=== PATIENT | female | born 2000 ===

== ENCOUNTER 2021-05-24 10:23 | Outpatient (CLI) | payer OTHER ==
[2021-05-24 19:55] LABS: SARS-CoV-2 PCR by NAA Not Detected (NotDetected)
== END 2021-05-24 10:24 | disposition home or self-care (01) ==
LOC: CSHLAB 10:23
PROVIDERS: ATTEND Obstetrics & Gynecology
DX: Z20.822 Contact with and (suspected) exposure to COVID-19 (principal)
CPT/HCPCS: U0003; U0005

== ENCOUNTER 2021-05-29 18:00 | Inpatient (IN) | payer OTHER ==
[~2021-05-29 18:00] MED LIST: Bupivacaine 0.25% HCL 30 ML VIAL ONE
[2021-05-29] MEDS ORDERED: HYDROcodone/Acetaminophen 5/325 mg Tablet PO PRN ×2 (18:51)
[2021-05-29] MEDS ORDERED: hydrALAZINE 20 MG/ML VIAL SLOW IVP PRN ×2 (18:51→20:25)
[2021-05-29] MEDS ORDERED: Butorphanol Tartrate 1 MG/ML VIAL SLOW IVP PRN (18:51)
[2021-05-29] MEDS ORDERED: Lidocaine 1% (PF) 30 ML VIAL SC PRN (18:51)
[2021-05-29] MEDS ORDERED: Ondansetron PF 4 MG/2 ML Vial IVP PRN (18:51)
[2021-05-29] MEDS ORDERED: Ibuprofen 800 MG TAB PO PRN (18:51)
[2021-05-29] MEDS ORDERED: NS w/ Oxytocin 30 units 500 ML IV SCH ×2 (18:51)
[2021-05-29] MEDS ORDERED: Promethazine HCl 25 MG/ML VIAL IM PRN (18:51)
[2021-05-29] MEDS ORDERED: hydrALAZINE 20 MG/ML VIAL ONE (19:36)
[2021-05-29 19:57] LABS: Hemoglobin 12.6 g/dL (12.0-15.5); Mean Corpuscular HGB CONC 34.7 g/dL (32.0-36.0); Mean Corpuscular Hemoglobin 30.8 pg (27.0-33.0); Mean Corpuscular Volume 88.8 fl (81.6-98.3); Mean Platelet Volume 12.8 fl (7.4-10.4); Platelet Count 173 10x3/uL (150-450); RBC Distribution Width 12.9 % (11.5-14.5); Red Blood Cell (RBC) Count 4.09 10x6/uL (3.90-5.03); White Blood Cell (WBC) Count 10.8 10x3/uL (3.5-10.5)
[2021-05-29 20:05] VITALS: BMI 34.3
[2021-05-29] MEDS ORDERED: Labetalol HCl 100 MG/20 ML VIAL SLOW IVP PRN (20:25)
[2021-05-29 20:28] LABS: Hep B Surf Ag Non-Reactive S/CO (NonReactive)
[2021-05-29 20:29] LABS: Syphilis Antibody Nonreactive (Nonreactive); Syphilis Antibody Index 0.01 S/CO (<1.00 Non-Reactive)
[2021-05-29] MEDS ORDERED: Penicillin G Potassium 5 MILL.UNITS in Sodium Chloride 0.9% 100 ML IVPB SCH (20:30)
[2021-05-29] MEDS ORDERED: Misoprostol 100 MCG TAB VAG SCH ×2 (20:30→21:00)
[2021-05-29 20:35] LABS: HBSAg Index 0.19 S/CO (0-0.99)
[2021-05-29] MEDS ORDERED: Calcium Gluc 4.6 MEQ/10 ML (100 MG/ML) SLOW IVP PRN (20:50)
[2021-05-29] MEDS ORDERED: Magnesium Sulfate 20 gm/500 ml 20 GM/500 ML BAG ONE (20:55)
[2021-05-29] MEDS ORDERED: Magnesium Sulfate 20 GM/WATER 500 ML BAG IVPB SCH (21:00)
[2021-05-29] MEDS ORDERED: Labetalol HCl 100 MG/20 ML VIAL SLOW IVP SCH (22:45)
[2021-05-30] MEDS ORDERED: NIFEdipine 10 MG CAP PO SCH (00:15)
[2021-05-30] MEDS ORDERED: Labetalol HCl 100 MG/20 ML VIAL SLOW IVP SCH (00:15)
[2021-05-30] MEDS: NIFEdipine 10 MG CAP PO SCH ×4 (01:10→21:19)
[2021-05-30] MEDS: Penicillin G 2.5 MILL.units 2.5 MILL.UNITS in Premix Bag 1 BAG IVPB SCH ×3 (01:58→10:07)
[2021-05-30] MEDS: Magnesium Sulfate 20 gm/500 ml 20 GM/500 ML BAG IVPB SCH (04:03)
[2021-05-30] MEDS: Misoprostol 100 MCG TAB VAG SCH (04:57)
[2021-05-30] MEDS ORDERED: Fentanyl 2 mcg/Bup 0.1% Cadd 100 ML ONE (09:13)
[2021-05-30] MEDS: NS w/ Oxytocin 30 units 500 ML IVPB SCH ×2 (10:07→15:06)
[2021-05-30] MEDS ORDERED: Carboprost 250 MCG/ML AMP ONE (13:56)
[2021-05-30] MEDS ORDERED: Misoprostol 200 MCG TAB ONE (13:57)
[2021-05-30] MEDS ORDERED: Magnesium Sulfate 20 gm/500 ml 20 GM/500 ML BAG ONE (14:00)
[2021-05-30] MEDS ORDERED: Hydrocerin (Eucerin) Cream 120 gm Jar TOP PRN (14:04)
[2021-05-30] MEDS ORDERED: ePHEDrine Sulfate 50 MG/10 ML VIAL SLOW IVP PRN (14:04)
[2021-05-30] MEDS ORDERED: Naloxone HCl 0.4 mg/ml Vial IVP PRN ×2 (14:04)
[2021-05-30] MEDS ORDERED: Ondansetron PF 4 MG/2 ML Vial IVP PRN (14:04)
[2021-05-30] MEDS ORDERED: Lactated Ringer's 500 ML IV PRN (14:04)
[2021-05-30] MEDS ORDERED: diphenhydrAMINE 50 MG/ML VIAL IVP PRN (14:04)
[2021-05-30] MEDS ORDERED: Promethazine HCl 25 MG/ML VIAL IM PRN (14:04)
[2021-05-30] MEDS ORDERED: Acetaminophen 325 MG TAB PO PRN (14:04)
[2021-05-30] MEDS ORDERED: Communication Order-Pharmacy FS PRN (14:15)
[2021-05-30] MEDS ORDERED: Fentanyl 2 mcg/Bupivacaine 0.1% Cassette 100 ML EPIDURAL SCH (14:15)
[2021-05-30 14:48] LABS: Actual Bicarbonate (HCO3v) 15 mEq/L (22-28); Base Excess -9.6 mEq/L (-2.0 to +3.0); Calcium, Ionized (venous) 1.09 mmol/L (1.16-1.32); Chloride (VBG) 100 mmol/L (98-106); Critical Notified Whom: LD RN; Hemoglobin (Hb) 15.8 g/dL (11.7-15.5); Potassium (VBG) 4.53 mmol/L (3.70-5.30); Puncture Site Other Site; RapidComm Collect By LAB TECH; Sodium 128.4 mmol/L (133-146); pH (venous) 7.31 (7.32-7.43)
[2021-05-30] MEDS ORDERED: NIFEdipine XL 30 MG TAB PO SCH (17:00)
[2021-05-30] MEDS ORDERED: hydrALAZINE 20 MG/ML VIAL ONE (20:45)
[2021-05-30] MEDS: Lactated Ringer's 1,000 ML IV SCH (22:51)
[2021-05-31] MEDS: NIFEdipine 10 MG CAP PO SCH (03:11)
[2021-05-31 05:53] LABS: ALT (SGPT) 38 U/L (8-55); AST (SGOT) 40 U/L (5-34); Albumin 2.4 g/dL (3.5-5.0); Alkaline Phosphatase 183 U/L (40-110); Anion Gap 12 mmol/L (10-20); BUN (Urea Nitrogen) 13 mg/dL (7.0-18.7); Bilirubin, Total 0.3 mg/dL (0.2-1.2); Calc. Creatinine Clearance 153 mL/min (70-130); Calcium 6.8 mg/dL (7.8-10.44); Carbon Dioxide 21 mmol/L (22-29); Chloride 102 mmol/L (98-107); Globulin 2.4 g/dL (2.4-3.5); Glucose 93 mg/dL (70-105); Potassium 4.7 mmol/L (3.5-5.1); Protein, Total 4.8 g/dL (6.0-8.3); Sodium 130 mmol/L (136-145)
[2021-05-31] MEDS: NIFEdipine XL 60 MG TAB PO SCH (09:41)
[2021-05-31] MEDS: Magnesium Sulfate 20 gm/500 ml 20 GM/500 ML BAG IVPB SCH (10:10)
[2021-05-31] MEDS: Lactated Ringer's 1,000 ML IV SCH ×2 (12:14→17:07)
[2021-05-31 15:36] LABS: Critical Notified Whom: LD RN; RapidComm Collect By LD RN
[2021-05-31 15:37] LABS: Critical Notified Whom: LD RN; RapidComm Collect By LD RN; pH (Cord, venous) 7.181 (7.250-7.350)
[2021-05-31] MEDS ORDERED: Ondansetron PF 4 MG/2 ML Vial IVP PRN (15:59)
[2021-05-31] MEDS ORDERED: Magnesium Sulfate 20 gm/500 ml 20 GM/500 ML BAG IVPB SCH (15:59)
[2021-05-31] MEDS ORDERED: Calcium Gluconate 4.6 MEQ in Sodium Chloride 0.9% 100 ML IVPB PRN (15:59)
[2021-05-31] MEDS ORDERED: Benzocaine-Menthol 82.5 ML CAN TOP PRN (15:59)
[2021-05-31] MEDS ORDERED: Milk Of Magnesia 30 ML UDCUP PO PRN ×2 (15:59)
[2021-05-31] MEDS ORDERED: Prenatal Vitamin 1 TAB PO SCH ×2 (15:59→17:00)
[2021-05-31] MEDS ORDERED: HYDROcodone/Acetaminophen 5/325 mg Tablet PO PRN ×4 (15:59)
[2021-05-31] MEDS ORDERED: Docusate Calcium (SURFAK) 240 MG CAP PO SCH ×2 (15:59→17:00)
[2021-05-31] MEDS ORDERED: Bisacodyl 10 MG SUPP PR PRN ×2 (15:59)
[2021-05-31] MEDS ORDERED: Lanolin Ointment 7 GM TUBE TOP PRN (15:59)
[2021-05-31] MEDS ORDERED: Ibuprofen 800 MG TAB PO SCH (15:59)
[2021-05-31] MEDS ORDERED: diphenhydrAMINE 25 MG CAP PO PRN (15:59)
[2021-05-31] MEDS ORDERED: hydrALAZINE 20 MG/ML VIAL SLOW IVP PRN ×2 (15:59)
[2021-05-31 16:47] LABS: Magnesium 5.5 mg/dL (1.6-2.6)
[2021-05-31] MEDS ORDERED: Ferrous Sulfate 325 MG TAB PO SCH (17:00)
[2021-05-31] MEDS: Ferrous Sulfate 325 MG TAB PO SCH (17:03)
[2021-05-31] MEDS: Misoprostol 100 MCG TAB VAG SCH ×5 (17:03→17:07)
[2021-05-31] MEDS: Penicillin G 2.5 MILL.units 2.5 MILL.UNITS in Premix Bag 1 BAG IVPB SCH ×3 (17:08→17:12)
[2021-05-31] MEDS: Ibuprofen 800 MG TAB PO SCH (17:35)
[2021-05-31] MEDS: Docusate Calcium (SURFAK) 240 MG CAP PO SCH (21:56)
[2021-06-01] MEDS: Ibuprofen 800 MG TAB PO SCH ×2 (01:22→08:46)
[2021-06-01] MEDS: NIFEdipine XL 60 MG TAB PO SCH (08:45)
[2021-06-01] MEDS: Docusate Calcium (SURFAK) 240 MG CAP PO SCH (08:45)
[2021-06-01] MEDS: Ferrous Sulfate 325 MG TAB PO SCH (08:45)
[2021-06-01] MEDS ORDERED: Prenatal Vitamin 1 TAB PO SCH (09:00)
[2021-06-01 11:35] VITALS: BP 138/80; TEMP 99
[2021-06-01] MEDS ORDERED: Boostrix 0.5 ML (Tdap) VIAL IM ONE (15:59)
== END 2021-06-01 16:25 | disposition home or self-care (01) | DRG 807 ==
LOC: CSHLD 18:27 → CSHPP 05-31 14:58
PROVIDERS: ADMIT Obstetrics & Gynecology; ATTEND Obstetrics & Gynecology
PROC: 10E0XZZ Delivery of Products of Conception, External Approach (ICD-10-PCS; principal; 2021-05-30)
PROC: 10907ZC Drainage of Amniotic Fluid, Therapeutic from Products of Conception, Via Natural or Artificial Opening (ICD-10-PCS; 2021-05-30)
PROC: 3E0P7VZ Introduction of Hormone into Female Reproductive, Via Natural or Artificial Opening (ICD-10-PCS; 2021-05-30)
PROC: 3E033VJ Introduction of Other Hormone into Peripheral Vein, Percutaneous Approach (ICD-10-PCS; 2021-05-30)
DX: O36.5930 Maternal care for other known or suspected poor fetal growth, third trimester, not applicable or unspecified (principal); Z37.0 Single live birth; Z3A.37 37 weeks gestation of pregnancy; O76 Abnormality in fetal heart rate and rhythm complicating labor and delivery; O14.14 Severe pre-eclampsia complicating childbirth; O13.4 Gestational [pregnancy-induced] hypertension without significant proteinuria, complicating childbirth; O69.81X0 Labor and delivery complicated by cord around neck, without compression, not applicable or unspecified; O99.824 Streptococcus B carrier state complicating childbirth; O99.284 Endocrine, nutritional and metabolic diseases complicating childbirth; Z20.822 Contact with and (suspected) exposure to COVID-19
CPT/HCPCS: 36415; 51702; 80053; 82805; 83735; 85027; 86780; 86850; 86900; 86901; 87340; J0360; J2540; J2590; J3475; J3490; J7120; S0020